=== PATIENT | female | born 1975 | race African-American/Black ===

== ENCOUNTER 2017-06-20 10:17 | Emergency (ER) | payer OTHER ==
[2017-06-20] MEDS ORDERED: ASPIRIN 81 MG TABLET, CHEWABLE PO ONE (10:38)
[2017-06-20 11:03] LABS: ABSOLUTE LYMPHOCYTES (AUTO) 0.8 10^3/uL (0.5-4.7); ABSOLUTE MONOCYTES (AUTO) 0.4 10^3/uL (0.1-1.4); ABSOLUTE NEUT (AUTO) 2.7 10^3/uL (1.7-8.2); BASOPHILS % (AUTO) 0.6 % (0-2); EOSINOPHILS % (AUTO) 0.4 % (0-6); HEMOGLOBIN 11.4 g/dL (12.0-15.5); HGB HCT DIFFERENCE 0.2; LYMPHOCYTES % (AUTO) 20.5 % (13-45); MEAN CORPUSCULAR HEMOGLOBIN 26.5 pg (27.0-33.4); MEAN CORPUSCULAR HGB CONC 33.7 g/dL (32.0-36.0); MEAN CORPUSCULAR VOLUME 79 fl (80-97); MONOCYTES % (AUTO) 9.5 % (3-13); RED BLOOD COUNT 4.32 10^6/uL (3.72-5.28); RED CELL DISTRIBUTION WIDTH 15.3 % (11.5-14.0); WHITE BLOOD COUNT 3.9 10^3/uL (4.0-10.5)
--- NOTE | 2017-06-20 11:05 | ER Document Report ---
ED Cardiac - General Mode of Arrival: Ambulatory Information source: Patient TRAVEL OUTSIDE OF THE [place] IN LAST 30 DAYS: No <BURT MARTINEZ - Last Filed: 06/20/17 10:53> <TERESA CHERY - Last Filed: 06/20/17 13:13> - General Chief Complaint: Palpitations Stated Complaint: HEART RATE CONCERNS Time Seen by Provider: 06/20/17 10:42 Notes: Patient is a 42 year old female that presents today with complaints of intermittent heart palpitations for the last week and a half. Patient states that she feels like her heart "flutters". Patient states it can last up to 30 minutes when it begins. Patient states she has never been checked out for this problem. Patient states that when her symptoms begin she sometimes feels the need to cough. Patient denies any history of cardiac disease or cardiac history. Patient states this has never woken her up from sleep and she is unable to correlate any events, time of day, etc to her symptoms starting. Patient denies any dizziness, lightheadedness, chest pain, or shortness of breath. (BURT MARTINEZ) - Related Data Allergies/Adverse Reactions: No Known Allergies Allergy (Unverified 06/20/17 10:37) Home Medications: Current Home Medications No Home Medications 06/20/17 [History] Past Medical History - General Information source: Patient - Social History Smoking Status: Never Smoker Cigarette use (# per day): No Chew tobacco use (# tins/day): No Frequency of alcohol use: None Drug Abuse: None Lives with: Family Family History: None Patient has suicidal ideation: No Patient has homicidal ideation: No - Medical History Medical History: Negative Renal/ Medical History: Denies: Hx Peritoneal Dialysis Surgical Hx: Negative - Immunizations Hx Diphtheria, Pertussis, Tetanus Vaccination: Yes <BURT MARTINEZ - Last Filed: 06/20/17 10:53> Review of Systems - Review of Systems Constitutional: No symptoms reported EENT: No symptoms reported Cardiovascular: See HPI, Palpitations. denies: Chest pain, Syncope, Dizziness, Lightheaded Respiratory: See HPI, Cough. denies: Short of breath Gastrointestinal: No symptoms reported Genitourinary: No symptoms reported Female Genitourinary: No symptoms reported Musculoskeletal: No symptoms reported Skin: No symptoms reported Hematologic/Lymphatic: No symptoms reported Neurological/Psychological: No symptoms reported -: Yes All other systems reviewed and negative <BURT MARTINEZ - Last Filed: 06/20/17 10:53> Physical Exam <BURT MARTINEZ - Last Filed: 06/20/17 10:53> <TERESA CHERY - Last Filed: 06/20/17 13:13> - Vital signs Vitals: Temp Pulse BP Pulse Ox 98.5 F 90 148/82 H 100 06/20/17 10:31 06/20/17 10:31 06/20/17 10:31 06/20/17 10:31 - Notes Notes: Physical Exam: General: Alert, appears well. HEENT: Normocephalic. Atraumatic. PERRL. Extraocular movements intact. Oropharynx clear. Neck: Supple. Non-tender. Respiratory: No respiratory distress. Clear and equal breath sounds bilaterally. Cardiovascular: Regular rate and rhythm. Abdominal: Normal Inspection. Non-tender. No distension. Normal Bowel Sounds. Back: Non-tender. No deformity or step off. Extremities: Moves all four extremities. Upper extremities: Normal inspection. Normal ROM. Lower extremities: Normal inspection. No edema. Normal ROM. Neurological: Normal cognition. AAOx4. Normal speech. Psychological: Normal affect. Normal Mood. Skin: Warm. Dry. Normal color. (BURT MARTINEZ) Course <BURT MARTINEZ - Last Filed: 06/20/17 10:53> - Laboratory Result Diagrams: 06/20/17 10:48 06/20/17 10:48 - Diagnostic Test Radiology reviewed: Image reviewed - EKG Interpretation by [facility] EKG shows normal: Sinus rhythm - Chest x-ray is unremarkable, [place], Intervals, QRS Complexes, ST-T Waves Rate: Normal - 82 Rhythm: NSR <TERESA CHERY - Last Filed: 06/20/17 13:13> - Re-evaluation Re-evalutation: 06/20/17 12:31 The patient is been here for 2 hours now with no palpitations noted. (TERESA CHERY) - Vital Signs Vital signs: Temp Pulse Resp BP Pulse Ox 98.5 F 90 15 124/81 99 06/20/17 10:31 06/20/17 10:31 06/20/17 12:01 06/20/17 12:00 06/20/17 12:01 - Laboratory Laboratory results interpreted by me: 06/20/17 06/20/17 10:48 10:48 WBC 3.9 L Hgb 11.4 L Hct 34.0 L MCV 79 L MCH 26.5 L RDW 15.3 H Creatine Kinase 177 H Total Protein 8.6 H Discharge <BURT MARTINEZ - Last Filed: 06/20/17 10:53> <TERESA CHERY - Last Filed: 06/20/17 13:13> - Discharge Clinical Impression: Palpitations Condition: Stable Disposition: HOME, SELF-CARE Additional Instructions: Palpitations (Irregular/Rapid Heartrate) Irregular or rapid heartbeat is called "palpitation." To diagnose the cause of palpitation, we have to "catch it in the act" with an EKG. Sinus Tachycardia: This is a rapid (but NORMAL) rhythm that can be due to fever, pain, anxiety, lack of sleep, over-exertion, or drugs. Cold medications, caffeine, and diet pills are particularly likely to cause tachycardia. Usually , all that's required is rest, reassurance, and avoiding caffeine, alcohol, nicotine, and unnecessary medicines. Paroxysmal Atrial Tachycardia (PAT): This abnormally rapid heartbeat is caused by a "short circuit" in the electrical system of the heart. It is not dangerous, unless other heart disease is present. These attacks of PAT may occur occasionally for years. Medication is available for treatment. Paroxysmal Atrial Fibrillation or Atrial Flutter: This is irregular electrical activity in the upper heart chamber. These abnormal rhythms often occur with valve disease or in hearts damaged by hardening of the arteries. These rhythms usually require further testing, for example a cardiac echo. Premature Beats: Extra beats occur more commonly after caffeine, nicotine , alcohol, cold pills, diet pills. Emotional stress or fatigue also provoke them. Extra beats are only dangerous when heart disease is present. They usually need no treatment. If they're frequent, or if evidence of heart disease develops, medication can be given to suppress them. If we were unable to "catch" the palpitations on EKG, you should try to get an EKG immediately if the symptoms begin again. Contact the physician at once if you develop persistent lightheadedness, shortness of breath, chest pain , or swelling of the ankles. //////////////////////////////////////////////////////////////////////////////// //////////////////////////////////////////////////////////////////////////////// ///////////// Call Dr. Torrez ([facility]) at [phone] to schedule an appointment in the office for Holter monitor. Referrals: TD TORREZ MD [ACTIVE STAFF] - 06/20/17 Scribe Attestation: 06/20/17 12:30 I personally performed the services described in the documentation, reviewed and edited the documentation which was dictated to the scribe in my presence, and it accurately records my words and actions. (TERESA CHERY)
--- NOTE | 2017-06-20 11:16 | RADIOLOGY REPORT (SQ) ---
EXAM DESCRIPTION: CHEST SINGLE VIEW COMPLETED DATE/TIME: 06/20/2017 11:01 am REASON FOR STUDY: cp COMPARISON: None. NUMBER OF VIEWS: One view. TECHNIQUE: Single frontal radiographic view of the chest acquired. LIMITATIONS: None. FINDINGS: LUNGS AND PLEURA: No opacities, masses or pneumothorax. No pleural effusion. MEDIASTINUM AND HILAR STRUCTURES: No masses. Contour normal. HEART AND VASCULAR STRUCTURES: Heart normal in size. Normal vasculature. BONES: No acute findings. HARDWARE: None in the chest. OTHER: No other significant finding. IMPRESSION: NO SIGNIFICANT RADIOGRAPHIC FINDING IN THE CHEST. TECHNICAL DOCUMENTATION: JOB ID: [id number] [facility] [employer]- All Rights Reserved
[2017-06-20 11:21] LABS: ALANINE AMINOTRANSFERASE 28 U/L (9-52); ALBUMIN 4.5 g/dL (3.5-5.0); ALKALINE PHOSPHATASE 63 U/L (38-126); ANION GAP 14 (5-19); ASPARTATE AMINO TRANSFERASE 24 U/L (14-36); BILIRUBIN,DIRECT 0.4 mg/dL (0.0-0.4); BILIRUBIN,TOTAL 0.8 mg/dL (0.2-1.3); BLOOD UREA NITROGEN 7 mg/dL (7-20); CALCIUM 9.4 mg/dL (8.4-10.2); CARBON DIOXIDE 27 mmol/L (22-30); CHLORIDE 104 mmol/L (98-107); CREATINE KINASE 177 U/L (30-135); GLUCOSE 97 mg/dL (75-110); POTASSIUM 3.9 mmol/L (3.6-5.0); TOTAL PROTEIN 8.6 g/dL (6.3-8.2)
[2017-06-20 13:41] VITALS: BP 148/85
--- NOTE | 2017-06-20 17:34 | EKG REPORT ---
SEVERITY:- NORMAL ECG - SINUS RHYTHM : Confirmed by: Marie Torrez MD 20-Jun-2017 17:33:41
== END 2017-06-20 13:41 | disposition home or self-care (01) ==
LOC: ER 10:17
DX: R00.2 Palpitations (principal)
CPT/HCPCS: 36415; 71010; 80053; 82550; 83735; 84443; 84484; 84703; 85025; 93005; 93010; 99285